=== PATIENT | male | born 1990 | race African-American/Black ===

== ENCOUNTER → 2019-09-25 | Emergency (ER) | payer MEDICAID, OTHER ==
[~2019-09-25] VITALS: Ht 180.3 cm; Wt 96.8 kg
[~2019-09-25] MED LIST: HYDROcodone-ACET 10/325MG TAB PO ONE
[2019-09-25 04:56] VITALS: BP 143/80
== END | disposition home or self-care (01) ==
LOC: ER 04:45
DX: K04.7 Periapical abscess without sinus (principal); K02.9 Dental caries, unspecified; H66.92 Otitis media, unspecified, left ear; Z88.1 Allergy status to other antibiotic agents

== ENCOUNTER 2020-01-21 00:46 | Emergency (ER) | payer MEDICAID ==
[~2020-01-21] VITALS: Ht 177.8 cm; Wt 102.1 kg
[2020-01-21] MEDS ORDERED: CLINDAMYCIN HCL 150 MG CAP PO ONE (04:45)
[2020-01-21] MEDS ORDERED: HYDROcodone-ACET 10/325MG TAB PO ONE (05:00)
[2020-01-21 05:26] VITALS: BP 147/92
== END 2020-01-21 05:46 | disposition home or self-care (01) ==
LOC: ER 00:47
DX: K02.9 Dental caries, unspecified (principal)